=== PATIENT | male | born 1980 | race Caucasian/White ===

== ENCOUNTER 2024-07-01 03:23 | Emergency (ER) | payer SELFPAY ==
[2024-07-01 03:35] VITALS: BP 156/88; PULSE 85
[2024-07-01] MEDS: Acetaminophen/HYDROcodone 325-5 MG Tab PO ONE (03:55)
[2024-07-01] MEDS: Cyclobenzaprine 10 MG Tab PO ONE (03:55)
[2024-07-01] MEDS: Amoxicillin/Clavulanate K 875-125 MG Tab PO ONE (04:16)
[2024-07-01] MEDS: Doxycycline 100 MG Cap PO ONE (04:16)
== END 2024-07-01 04:20 | disposition home or self-care (01) ==
LOC: MW.ED 03:23
DX: J18.9 Pneumonia, unspecified organism (principal); Z75.8 Other problems related to medical facilities and other health care
CPT/HCPCS: 71101; 99284; A9270; 99283

== ENCOUNTER 2025-07-23 23:15 | Emergency (ER) | payer SELFPAY ==
[2025-07-23 23:40] LABS: BASOPHILS ABSOLUTE AUTO 0.06 K/uL (0.00-0.20); BASOPHILS PERCENT AUTO 0.6 % (0.0-1.0); EOSINOPHILS ABSOLUTE AUTO 0.28 K/uL (0.00-0.45); EOSINOPHILS PERCENT AUTO 2.8 % (0.0-6.0); IMMATURE GRAN ABSOLUTE AUTO 0.03 K/uL (0.00-0.05); IMMATURE GRAN PERCENT AUTO 0.3 % (0.0-0.4); LYMPHOCYTES ABSOLUTE AUTO 2.72 K/uL (1.00-4.80); LYMPHOCYTES PERCENT AUTO 26.9 % (24.0-44.0); MEAN PLATELET VOLUME 10.1 fL (9.4-12.4); MONOCYTES ABSOLUTE AUTO 0.72 K/uL (0.00-0.80); MONOCYTES PERCENT AUTO 7.1 % (0.0-8.0); NEUTROPHILS ABSOLUTE AUTO 6.32 K/uL (1.80-7.70); NEUTROPHILS PERCENT AUTO 62.3 % (41.0-71.0); NRBC ABSOLUTE 0.00 K/uL (0.00-0.02); NRBC PERCENT 0.0 /100WBC (0.0-0.2); PLATELET COUNT,PLT 195 K/uL (150-400); RED BLOOD CELL COUNT 5.42 M/uL (4.52-5.90); WHITE BLOOD CELL COUNT,WBC 10.13 K/uL (3.9-11.3)
[2025-07-24 00:13] LABS: A/G RATIO 1.0 (0.9-1.6); ALANINE AMINOTRANSFERASE,ALT 43 IU/L (14-63); ASPARTATE AMNIOTRANSFERASE,AST 19 IU/L (15-37); BILIRUBIN TOTAL 0.7 mg/dL (0.2-1.0); BLOOD UREA NITROGEN,BUN 14 mg/dL (7.0-18.0); CARBON DIOXIDE,CO2 29.3 mmol/L (21.0-32.0); CHLORIDE,CL 104 mmol/L (98-107); CREATININE 1.1 mg/dL (0.8-1.3); ESTIMATED GFR 85 mL/min (>60); GLUCOSE RANDOM 124 mg/dL (74-106); POTASSIUM,K 4.1 mmol/L (3.5-5.1); PROTEIN TOTAL,TP 7.2 g/dL (6.4-8.2); SODIUM,NA 142 mmol/L (136-148)
[2025-07-24] MEDS ORDERED: Naloxone 0.4 MG/ML SDV IVPUSH PRN (01:04)
[2025-07-24] MEDS: Ondansetron 4 MG/2 ML SDV IVPUSH ONE (01:10)
[2025-07-24 01:26] LABS: INR 0.98 (0.86-1.11); PTT,PARTIAL THROMBOPLSTIN TIME 25.9 SEC (23.9-30.7)
[2025-07-24] MEDS: Iopamidol 755 MG/ML 500 ML Multipack Bottle IVPUSH ONE (01:28)
[2025-07-24 02:13] VITALS: BP 144/84; PULSE 57
== END 2025-07-24 02:50 | disposition left against medical advice (07) ==
LOC: MW.ED 23:15
DX: R10.9 Unspecified abdominal pain (principal)
CPT/HCPCS: 36415; 70450; 71260; 74177; 80053; 83690; 84484; 85025; 85610; 85730; 96374; 96375; 99285; J1171; J2405; Q9967; 99283

== ENCOUNTER 2025-08-05 17:13 | Observation (INO) | payer MEDICAID ==
[2025-08-05] MEDS ORDERED: Sodium Chloride 0.9% 10 ML Syringe FLUSH PRN ×2 (17:27→20:28)
[2025-08-05] MEDS ORDERED: Sodium Chloride 0.9% 2.5 ML Syringe FLUSH PRN ×2 (17:27→20:28)
[2025-08-05] MEDS: Alum Hydrox/Mag Hydrox/Simeth 15 ML, Lidocaine 2% 5 ML PO ONE (17:38)
[2025-08-05] MEDS: Ketorolac 30 MG/ML SDV IVPUSH ONE (17:38)
[2025-08-05] MEDS: Ondansetron 4 MG/2 ML SDV IVPUSH ONE (17:38)
[2025-08-05 17:40] LABS: BASOPHILS ABSOLUTE AUTO 0.09 K/uL (0.00-0.20); BASOPHILS PERCENT AUTO 0.7 % (0.0-1.0); EOSINOPHILS ABSOLUTE AUTO 0.33 K/uL (0.00-0.45); EOSINOPHILS PERCENT AUTO 2.6 % (0.0-6.0); IMMATURE GRAN ABSOLUTE AUTO 0.04 K/uL (0.00-0.05); IMMATURE GRAN PERCENT AUTO 0.3 % (0.0-0.4); LYMPHOCYTES ABSOLUTE AUTO 2.55 K/uL (1.00-4.80); LYMPHOCYTES PERCENT AUTO 20.3 % (24.0-44.0); MEAN PLATELET VOLUME 10.0 fL (9.4-12.4); MONOCYTES ABSOLUTE AUTO 0.66 K/uL (0.00-0.80); MONOCYTES PERCENT AUTO 5.2 % (0.0-8.0); NEUTROPHILS ABSOLUTE AUTO 8.92 K/uL (1.80-7.70); NEUTROPHILS PERCENT AUTO 70.9 % (41.0-71.0); NRBC ABSOLUTE 0.00 K/uL (0.00-0.02); NRBC PERCENT 0.0 /100WBC (0.0-0.2); PLATELET COUNT,PLT 254 K/uL (150-400); RED BLOOD CELL COUNT 5.30 M/uL (4.52-5.90); WHITE BLOOD CELL COUNT,WBC 12.59 K/uL (3.9-11.3)
[2025-08-05] MEDS: Iopamidol 755 MG/ML 500 ML Multipack Bottle IVPUSH STA (17:55)
[2025-08-05 18:07] LABS: ALANINE AMINOTRANSFERASE,ALT 57.0 IU/L (14-63); ASPARTATE AMNIOTRANSFERASE,AST 28.0 IU/L (15-37); BILIRUBIN TOTAL 0.5 mg/dL (0.2-1.0); BLOOD UREA NITROGEN,BUN 11.0 mg/dL (7.0-18.0); CARBON DIOXIDE,CO2 24.6 mmol/L (21.0-32.0); CHLORIDE,CL 106.0 mmol/L (98-107); CREATININE 1.1 mg/dL (0.8-1.3); EST CRCL DRUG DOSING (CG) 94.06 mL/min; GLUCOSE RANDOM 127.0 mg/dL (74-106); POTASSIUM,K 3.6 mmol/L (3.5-5.1); PROTEIN TOTAL,TP 7.2 g/dL (6.4-8.2); SODIUM,NA 143.0 mmol/L (136-148)
[2025-08-05 18:10] LABS: A/G RATIO 0.9 (0.9-1.6); ESTIMATED GFR 85.0 mL/min (>60)
[2025-08-05 20:11] LABS: APPEARANCE,URINE CLEAR; GLUCOSE,URINE NEGATIVE (NEGATIVE); OCCULT BLOOD,URINE NEGATIVE (NEGATIVE)
[2025-08-05] MEDS ORDERED: diphenhydrAMINE 50 MG/ML SDV IVPUSH PRN (20:28)
[2025-08-05] MEDS ORDERED: Ondansetron 4 MG/2 ML SDV IVPUSH PRN (20:28)
[2025-08-05] MEDS ORDERED: hydrALAZINE 20 MG/ML SDV IVPUSH PRN (20:58)
[2025-08-05] MEDS: Acetaminophen/oxyCODONE 325-5 MG Tab PO PRN (21:11)
[2025-08-05] MEDS: Lactated Ringers 1,000 ML IV SCH (21:16)
[2025-08-05] MEDS: Ketorolac 30 MG/ML SDV IVPUSH SCH (21:43)
[2025-08-06] MEDS ORDERED: Ropivacaine 0.5% 5 MG/ML 30 ML SDV ONE (06:59)
[2025-08-06] MEDS ORDERED: Dexamethasone 4 MG/ML 5 ML MDV ONE (06:59)
[2025-08-06] MEDS ORDERED: Ondansetron 4 MG/2 ML SDV ONE ×2 (06:59→11:06)
[2025-08-06] MEDS ORDERED: dexmedeTOMIDine HCl 200 MCG/2 ML SDV ONE (06:59)
[2025-08-06] MEDS ORDERED: fentaNYL 100 MCG/2 ML SDV ONE (07:00)
[2025-08-06 08:17] LABS: MEAN PLATELET VOLUME 10.0 fL (9.4-12.4); NRBC ABSOLUTE 0.00 K/uL (0.00-0.02); NRBC PERCENT 0.0 /100WBC (0.0-0.2); PLATELET COUNT,PLT 187 K/uL (150-400); RED BLOOD CELL COUNT 4.84 M/uL (4.52-5.90); WHITE BLOOD CELL COUNT,WBC 9.86 K/uL (3.9-11.3)
[2025-08-06 08:38] LABS: A/G RATIO 0.9 (0.9-1.6); ALANINE AMINOTRANSFERASE,ALT 60.0 IU/L (14-63); ASPARTATE AMNIOTRANSFERASE,AST 29.0 IU/L (15-37); BILIRUBIN TOTAL 1.1 mg/dL (0.2-1.0); BLOOD UREA NITROGEN,BUN 7.0 mg/dL (7.0-18.0); CARBON DIOXIDE,CO2 23.9 mmol/L (21.0-32.0); CHLORIDE,CL 107.0 mmol/L (98-107); CREATININE 0.9 mg/dL (0.8-1.3); EST CRCL DRUG DOSING (CG) 114.96 mL/min; ESTIMATED GFR 108.0 mL/min (>60); GLUCOSE RANDOM 111.0 mg/dL (74-106); POTASSIUM,K 3.7 mmol/L (3.5-5.1); PROTEIN TOTAL,TP 6.1 g/dL (6.4-8.2); SODIUM,NA 142.0 mmol/L (136-148)
[2025-08-06] MEDS ORDERED: Ondansetron 4 MG/2 ML SDV IVPUSH PRN (08:52)
[2025-08-06] MEDS ORDERED: fentaNYL 50 MCG/ML SDV IVPUSH PRN (08:52)
[2025-08-06] MEDS ORDERED: Naloxone 0.4 MG/ML SDV IVPUSH PRN (08:52)
[2025-08-06] MEDS ORDERED: Albuterol 0.083% 2.5 MG/3 ML Neb Soln NEB PRN (08:52)
[2025-08-06] MEDS ORDERED: Propofol 200 MG/20 ML SDV ONE (09:26)
[2025-08-06] MEDS ORDERED: Magnesium Sulfate (4.06 MEQ/ML) 5 GM/10 ML SDV ONE (10:39)
[2025-08-06] MEDS ORDERED: propofoL 500 MG/50 ML 100 ML ONE (10:57)
[2025-08-06] MEDS ORDERED: Morphine 10 MG/ML SDV ONE (11:03)
[2025-08-06] MEDS ORDERED: Ketorolac 30 MG/ML SDV ONE (11:06)
[2025-08-06] MEDS ORDERED: Indocyanine Green 25 MG SDV ONE (11:18)
[2025-08-06] MEDS ORDERED: Esmolol 100 MG/10 ML SDV ONE (11:32)
[2025-08-07 08:55] VITALS: BP 124/80; PULSE 85
== END 2025-08-07 08:55 | disposition home or self-care (01) ==
LOC: MW.ED 17:13 → MW.MS 19:44
PROVIDERS: ADMIT Surgery; ATTEND Surgery
DX: K80.12 Calculus of gallbladder with acute and chronic cholecystitis without obstruction (principal); K82.A1 Gangrene of gallbladder in cholecystitis; K65.8 Other peritonitis; Z79.899 Other long term (current) drug therapy
CPT/HCPCS: 00790; 36415; 64488; 74177; 74177-26; 80053; 81003; 83036; 83690; 83735; 85025; 85027; 87070; 87075; 87205; 96361; 96365; 96366; 96375; 96376; 99284; 99285-25; A9270-GY; G0378; J0665; J0690; J1100; J1171; J1805; J1885; J2272; J2405; J2543; J2704; J2795; J3010; J3475; J3490; J7030; J7120; Q9967